=== PATIENT | male | born 1970 | race Caucasian/White ===

== ENCOUNTER 2021-04-29 15:35 | Emergency (ER) | payer BC ==
[~2021-04-29] VITALS: Ht 190.5 cm; Wt 136.4 kg
[2021-04-29] MEDS ORDERED: NORVASC 10MG10 MG PO (16:29)
[2021-04-29] MEDS ORDERED: HYZAAR 25 MG-101 TAB PO (16:29)
[2021-04-29] MEDS ORDERED: LIPITOR 40MG TA40 MG PO (16:29)
[2021-04-29] MEDS ORDERED: JARDIANCE10 PO (16:30)
[2021-04-29 17:07] LABS: HEMATOCRIT 44.1 % (42.0-52.0); HEMOGLOBIN 15.5 g/dl (13.5-18.0); MEAN CELL VOLUME 92 fl (80.0-100.0); MEAN CORPUSCULAR HEMOGLOBIN 32 pg (27.0-31.0); MEAN CORPUSCULAR HGB CONC 35 g/dl (33.0-37.0); MEAN PLATELET VOLUME 10.6 fl (7.4-10.4); PLATELET COUNT 284 K/mm3 (130-400); RED BLOOD COUNT 4.81 M/mm3 (4.20-5.60); REDCELL DISTRIBUTION WIDTH-CV 13.1 % (11.5-14.5)
[2021-04-29 17:17] LABS: ALBUMIN 4.4 gm/dL (3.5-5.0); BILIRUBIN,TOTAL 1.3 mg/dL (0.0-1.0); CALCIUM 9.4 mg/dL (8.4-10.2); CREATININE, serum 0.74 (0.66-1.25); POTASSIUM 3.1 mmol/L (3.4-5.0); TOTAL PROTEIN 8.4 gm/dL (6.4-8.2)
[2021-04-29 17:46] LABS: BAND 2 % (0-10); LYMPHOCYTE 13 % (20.0-51.0); NEUTROPHILS 76 % (42.0-75.2)
[2021-04-29 21:18] VITALS: BP 135/83; PULSE 68; TEMP 98.1
== END 2021-04-29 21:18 | disposition home or self-care (01) ==
LOC: COL.ER 15:35
PROVIDERS: Physician Assistant
DX: U07.1 COVID-19 (principal); I10 Essential (primary) hypertension; E11.9 Type 2 diabetes mellitus without complications; E78.5 Hyperlipidemia, unspecified; Z79.84 Long term (current) use of oral hypoglycemic drugs; Z73.0 Burn-out
CPT/HCPCS: Q0244

== ENCOUNTER 2024-05-09 08:04 | Inpatient (IN) | payer BC ==
[~2024-05-09] VITALS: Ht 190.5 cm; Wt 143.9 kg
[~2024-05-09 08:04] MED LIST: HYZAAR 25 MG-101 TAB PO; JARDIANCE25 PO; LIPITOR 40MG TA40 MG PO; NORVASC 10MG10 MG PO
[2024-05-09] MEDS ORDERED: NS 1,000 ML IV ONE (09:15)
[2024-05-09 09:42] LABS: BASO % 0.1 % (0.0-2.0); GRAN # 14.3 K/mm3 (1.4-6.5); GRAN % 88.8 % (42.2-75.2); HEMOGLOBIN 16.4 g/dl (13.5-18.0); LYMPH # 1.3 K/mm3 (1.2-3.4); MEAN CELL VOLUME 93 fl (80.0-100.0); MEAN CORPUSCULAR HEMOGLOBIN 32 pg (27-31); MEAN CORPUSCULAR HGB CONC 35 g/dl (33.0-37.0); MEAN PLATELET VOLUME 10.4 fl (7.4-10.4); MONO # 0.4 K/mm3 (0.1-0.6); MONO % 2.7 % (1.7-9.3); PLATELET COUNT 328 K/mm3 (130-400); RED BLOOD COUNT 5.06 M/mm3 (4.20-5.60); REDCELL DISTRIBUTION WIDTH-CV 12.8 % (11.5-14.5)
[2024-05-09 10:04] LABS: ALBUMIN 4.1 g/dL (3.5-5.0); BILIRUBIN,TOTAL 1.3 mg/dL (0.2-1.2); C-REACTIVE PROTEIN 0.48 mg/dL (0.00-0.50); CALCIUM 9.6 mg/dL (8.4-10.2); CREATININE, serum 0.82 mg/dL (0.72-1.25); POTASSIUM 3.3 mEq/L (3.5-4.5); TOTAL PROTEIN 8.1 g/dl (6.2-8.1)
[2024-05-09] MEDS ORDERED: Iohexol 300 - 100 ML VIAL IV ONE (10:15)
[2024-05-09] MEDS ORDERED: NS 100 ML IV SCH (10:16)
[2024-05-09] MEDS ORDERED: CIALIS10 MG PO (13:01)
[2024-05-09] MEDS ORDERED: LR 1,000 ML IV SCH ×2 (13:30→23:00)
[2024-05-09] MEDS ORDERED: Ondansetron 4 MG/2 ML VIAL IV PRN ×3 (13:30→23:00)
[2024-05-09] MEDS ORDERED: Docusate Sodium 100 MG CAP PO PRN (13:30)
[2024-05-09] MEDS ORDERED: Polyethylene Glycol 3350 17 GM PDS PO PRN (13:30)
[2024-05-09] MEDS ORDERED: *Potassium Replacement Protocol MC SCH (13:30)
[2024-05-09] MEDS ORDERED: Acetaminophen 325 MG TAB PO PRN (13:30)
[2024-05-09] MEDS ORDERED: Potassium Chloride 100 ML IV SCH ×2 (13:30→23:45)
[2024-05-09] MEDS ORDERED: Heparin 5,000 UNITS/ML 1 ML VIAL SQ SCH (16:00)
[2024-05-09 16:54] VITALS: BP 170/79; PULSE 69; TEMP 98.8
[2024-05-09] MEDS ORDERED: Morphine 4 MG/ML VIAL IV PRN (17:15)
[2024-05-09 17:23] VITALS: BP_SYST 170
--- NOTE | 2024-05-09 18:15 | NUR ---
PATIENT GOING DOWN TO OR. PACU AWARE OF NO ORDERS FOR A CONSENT. NPO. IV FLUIDS TO GRAVITY IN ROOM AND READY TO GO. TICKET TO RIDE ON CHART. PATIENT GOING DOWN VIA BED WITH PACU NURSE. FAMILY JUST ARRIVED AT BEDSIDE.
[2024-05-09] MEDS ORDERED: Scopolamine 1 MG Delivered 3-Day PATCH TD SCH (19:00)
[2024-05-09] MEDS ORDERED: Midazolam 2 MG/2 ML VIAL ONE (19:22)
[2024-05-09] MEDS ORDERED: Rocuronium 50 MG/5 ML Multi-Dose VIAL ONE ×2 (19:22→21:05)
[2024-05-09] MEDS ORDERED: fentaNYL 50 MCG/ML 2 ML VIAL ONE ×2 (19:22→22:23)
[2024-05-09] MEDS ORDERED: Succinylcholine PF 200 MG/10 ML SYRINGE IV ONE ×2 (19:23→19:42)
[2024-05-09] MEDS ORDERED: dexAMETHasone 10 MG/ML VIAL ONE (19:26)
[2024-05-09] MEDS ORDERED: Lidocaine PF 2% (20 MG/ML) 5 ML VIAL ONE (19:26)
[2024-05-09] MEDS ORDERED: NS 10 ML IV ONE (19:26)
[2024-05-09] MEDS ORDERED: Ketorolac 30 MG/ML VIAL ONE (19:26)
[2024-05-09] MEDS ORDERED: Glycopyrrolate 0.2 MG/ML 1 ML VIAL ONE (19:26)
[2024-05-09] MEDS ORDERED: NS 100 ML IV ONE (20:05)
[2024-05-09] MEDS ORDERED: Ondansetron 4 MG/2 ML VIAL ONE (21:32)
[2024-05-09] MEDS ORDERED: HYDROmorphone 1 MG/1 ML SYRINGE [PACU/SDC ONLY] IV PRN (22:00)
[2024-05-09] MEDS ORDERED: fentaNYL 50 MCG/ML 1 ML SYRINGE/VIAL [PACU/SDC ONLY] IV PRN (22:00)
[2024-05-09] MEDS ORDERED: hydrALAZINE 20 MG/ML 1 ML VIAL IV PRN (22:00)
[2024-05-09] MEDS ORDERED: Naloxone 0.4 MG/ML VIAL IV PRN (23:00)
[2024-05-09] MEDS ORDERED: oxyCODONE 5 MG TAB PO PRN (23:00)
[2024-05-09] MEDS ORDERED: HYDROmorphone 0.5 MG/0.5 ML SYRINGE IV PRN (23:00)
[2024-05-09 23:45] VITALS: BP 138/63; PULSE 65
[2024-05-09] MEDS ORDERED: Acetaminophen 500 MG TAB PO SCH (23:49)
[2024-05-10] VITALS (18 sets, daily range): BP systolic 106–137; BP diastolic 61–71; PULSE 53–71; TEMP 98–98.8
--- NOTE | 2024-05-10 | NUR ---
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
[2024-05-10 01:00] LABS: URINE APPEARANCE CLEAR (CLEAR/HAZY); URINE BLOOD NEGATIVE (NEGATIVE); URINE COLOR YELLOW (YELLOW); URINE GLUCOSE 3+ (NEGATIVE); URINE KETONE 2+ (NEGATIVE); URINE NITRATE NEGATIVE (NEGATIVE); URINE PROTEIN(semi-quant) 1+ (NEGATIVE); URINE UROBILINOGEN 0.2 E.U/dL (0.2-1.0)
[2024-05-10 01:12] LABS: COLLECTION METHOD CLEAN CATCH
--- NOTE | 2024-05-10 03:22 | NUR ---
Called Giuseppe,the PA and made him aware that patient is still on NPO, received an order for low dose insulin sliding scale.
[2024-05-10] MEDS ORDERED: Insulin Lispro (HumaLOG) SQ SCH (06:00)
[2024-05-10 06:35] LABS: BASO % 0.2 % (0.0-2.0); HEMATOCRIT 40.5 % (42.0-52.0); LYMPH % 4.8 % (20.0-51.0); MEAN CELL VOLUME 93 fl (80.0-100.0); MEAN CORPUSCULAR HGB CONC 35 g/dl (33.0-37.0); MEAN PLATELET VOLUME 10.7 fl (7.4-10.4); MONO # 1.2 K/mm3 (0.1-0.6); MONO % 5.5 % (1.7-9.3); PLATELET COUNT 295 K/mm3 (130-400); RED BLOOD COUNT 4.37 M/mm3 (4.20-5.60); REDCELL DISTRIBUTION WIDTH-CV 12.9 % (11.5-14.5)
[2024-05-10 06:37] LABS: HEMOGLOBIN 14.2 g/dl (13.5-18.0); MEAN CORPUSCULAR HEMOGLOBIN 32 pg (27-31)
[2024-05-10 06:56] LABS: ALBUMIN 3.7 g/dL (3.5-5.0); BILIRUBIN,TOTAL 0.9 mg/dL (0.2-1.2); CALCIUM 8.6 mg/dL (8.4-10.2); CREATININE, serum 0.82 mg/dL (0.72-1.25); MAGNESIUM 2.4 mg/dL (1.6-2.6); PHOSPHOROUS 4.1 mg/dL (2.3-4.7); POTASSIUM 3.7 mEq/L (3.5-4.5); TOTAL PROTEIN 6.8 g/dl (6.2-8.1)
--- NOTE | 2024-05-10 07:02 | NUR ---
CRITICAL LAB WBC 21.[address] HOLMAN.
[2024-05-10] MEDS ORDERED: Glucagon 1 MG VIAL IM PRN (07:30)
[2024-05-10] MEDS ORDERED: Dextrose 50% Water 25 GM/50 ML SYRINGE IV PRN (07:30)
[2024-05-10] MEDS ORDERED: Dextrose (Glucose) 15 GM (4 x 3.75 GM) Chewable TABLET PACK PO PRN (07:30)
--- NOTE | 2024-05-10 08:00 | NUR ---
PATIENT IS A&O. VSS. 02 @ 2L PER NC WITH SATS IN MID 90'S. C/O PAIN RATED AT 6/10. GAVE PRN IV DILAUDID WITH AM MEDS. IV FLUIDS INFUSING VIA PUMP INTO RIGHT FORARM IV, IV ABX INFUSING INTO LEFT AC IV. DIET ADVANCED TO CLEARS AND LIQUIDS AT BEDSIDE. AM BS WAS 143, NO SSI REQUIRED. ABD IS DISTENDED, FIRM, AND WITH HYPO ACTIVE BOWL SOUNDS. ABD MIDLINE DSG IS CD&I. COLOSTOMY WITH BAG & WAFFER INTACT. HEAD TO TOE ASSESSMENT COMPLETE. CHEMICAL TESTER NURSE REPORTED CRITICAL WBC OF 21.3. HOSPITALIST TEAM TO ROUND SOON. PATIENT RESTING UP IN BED WITH NO OTHER NEEDS. CALL LIGHT IN REACH.
[2024-05-10] MEDS ORDERED: Celecoxib 200 MG CAP PO SCH (09:00)
--- NOTE | 2024-05-10 11:41 | NUR ---
D: Patient Registrar stopped by room on rounds. A: Pt was resting and content. No needs right now. P: Patient Registrar informed pt that if he needed anything from the counter tender area to let his nurse know. Patient Registrar will follow up as needed.
--- NOTE | 2024-05-10 16:53 | NUR ---
fat pressroom worker met with patient to discuss discharge planning. Patient lives in [place] with his , Marylou, P# [phone]. PCP is Dr. Darling, [facility]acy [facility] No issues affording medications. No DPOA-HC, DME is a CPAP. Patient reports to be independent with [facility] and has a form of transportation to and from appointments. Insurance is [employer]. Patient would like to return home at time of discharge. Discharge plan: Home
[2024-05-10] MEDS ORDERED: Potassium Bicarbonate/Citrate 20 MEQ Effervescent TAB PO SCH (20:00)
[2024-05-11] VITALS (12 sets, daily range): BP systolic 107–135; BP diastolic 65–82; PULSE 59–65; TEMP 97.6–98.9
[2024-05-11 06:10] LABS: BASO # 0.1 K/mm3 (0.0-0.2); BASO % 0.5 % (0.0-2.0); EOS # 0.1 K/mm3 (0.0-0.7); EOS % 0.8 % (0.0-4.0); GRAN % 68.6 % (42.2-75.2); HEMATOCRIT 37.1 % (42.0-52.0); HEMOGLOBIN 12.6 g/dl (13.5-18.0); LYMPH # 2.2 K/mm3 (1.2-3.4); LYMPH % 21.8 % (20.0-51.0); MEAN CELL VOLUME 96 fl (80.0-100.0); MEAN CORPUSCULAR HEMOGLOBIN 33 pg (27-31); MEAN CORPUSCULAR HGB CONC 34 g/dl (33.0-37.0); MEAN PLATELET VOLUME 10.8 fl (7.4-10.4); MONO # 0.8 K/mm3 (0.1-0.6); MONO % 7.9 % (1.7-9.3); PLATELET COUNT 233 K/mm3 (130-400); RED BLOOD COUNT 3.88 M/mm3 (4.20-5.60); REDCELL DISTRIBUTION WIDTH-CV 13.5 % (11.5-14.5)
[2024-05-11 06:27] LABS: BILIRUBIN,TOTAL 0.9 mg/dL (0.2-1.2); CALCIUM 8.3 mg/dL (8.4-10.2); CREATININE, serum 0.68 mg/dL (0.72-1.25); POTASSIUM 3.5 mEq/L (3.5-4.5); TOTAL PROTEIN 5.8 g/dl (6.2-8.1)
[2024-05-11] MEDS ORDERED: Potassium Bicarbonate/Citrate 20 MEQ Effervescent TAB PO SCH (08:00)
--- NOTE | 2024-05-11 08:00 | NUR ---
Pt. sitting up in bed. Pt. is A&OX3, assessment complete. Colostomy noted with liquid brown stool noted and passing gas through stoma. Stoma WNL. Pt. reports pain at a 9 on pain scale, will give meds per orders. Pt. denies further needs, call light within reach.
[2024-05-11] MEDS ORDERED: Insulin Lispro (HumaLOG) SQ SCH (21:00)
[2024-05-12] VITALS (12 sets, daily range): BP systolic 108–147; BP diastolic 68–85; PULSE 54–70; TEMP 97.5–98.9
[2024-05-12 06:13] LABS: BASO # 0.1 K/mm3 (0.0-0.2); BASO % 0.6 % (0.0-2.0); EOS # 0.2 K/mm3 (0.0-0.7); EOS % 2.2 % (0.0-4.0); GRAN # 5.6 K/mm3 (1.4-6.5); GRAN % 65.6 % (42.2-75.2); HEMATOCRIT 37.4 % (42.0-52.0); HEMOGLOBIN 12.9 g/dl (13.5-18.0); LYMPH % 23.2 % (20.0-51.0); MEAN CELL VOLUME 95 fl (80.0-100.0); MEAN CORPUSCULAR HEMOGLOBIN 33 pg (27-31); MEAN CORPUSCULAR HGB CONC 35 g/dl (33.0-37.0); MEAN PLATELET VOLUME 10.3 fl (7.4-10.4); MONO # 0.7 K/mm3 (0.1-0.6); MONO % 7.8 % (1.7-9.3); PLATELET COUNT 226 K/mm3 (130-400); RED BLOOD COUNT 3.94 M/mm3 (4.20-5.60); REDCELL DISTRIBUTION WIDTH-CV 13.1 % (11.5-14.5)
[2024-05-12 06:40] LABS: BILIRUBIN,TOTAL 0.8 mg/dL (0.2-1.2); CALCIUM 8.4 mg/dL (8.4-10.2); CREATININE, serum 0.71 mg/dL (0.72-1.25); TOTAL PROTEIN 6.3 g/dl (6.2-8.1)
--- NOTE | 2024-05-12 08:17 | NUR ---
Pt. sitting up in bed. Pt. is A&OX3, assessment complete. INT to lt. ac and rt. wrist patent. Pt. reports not sleeping well last noc. Pt. reports pain at a 9 on pain scale, giving pain meds per orders. Midline incision CDI. Colostomy intact. Pt. denies further needs, call light within reach.
[2024-05-13] VITALS (11 sets, daily range): BP systolic 114–150; BP diastolic 73–81; PULSE 50–63; TEMP 97.4–98.6
[2024-05-13 06:40] LABS: BASO # 0.1 K/mm3 (0.0-0.2); BASO % 0.6 % (0.0-2.0); EOS # 0.3 K/mm3 (0.0-0.7); EOS % 3.6 % (0.0-4.0); GRAN # 5.4 K/mm3 (1.4-6.5); GRAN % 65.6 % (42.2-75.2); HEMOGLOBIN 12.5 g/dl (13.5-18.0); LYMPH # 1.8 K/mm3 (1.2-3.4); LYMPH % 21.7 % (20.0-51.0); MEAN CELL VOLUME 94 fl (80.0-100.0); MEAN CORPUSCULAR HEMOGLOBIN 32 pg (27-31); MEAN CORPUSCULAR HGB CONC 34 g/dl (33.0-37.0); MEAN PLATELET VOLUME 10.6 fl (7.4-10.4); MONO # 0.7 K/mm3 (0.1-0.6); MONO % 7.9 % (1.7-9.3); PLATELET COUNT 248 K/mm3 (130-400); RED BLOOD COUNT 3.92 M/mm3 (4.20-5.60); REDCELL DISTRIBUTION WIDTH-CV 13.1 % (11.5-14.5)
[2024-05-13 06:52] LABS: HEMATOCRIT 36.9 % (42.0-52.0)
[2024-05-13 07:24] LABS: ALBUMIN 2.8 g/dL (3.5-5.0); BILIRUBIN,TOTAL 0.8 mg/dL (0.2-1.2); CALCIUM 8.3 mg/dL (8.4-10.2); CREATININE, serum 0.67 mg/dL (0.72-1.25); POTASSIUM 3.9 mEq/L (3.5-4.5); TOTAL PROTEIN 6.1 g/dl (6.2-8.1)
[2024-05-13] MEDS ORDERED: Potassium Bicarbonate/Citrate 20 MEQ Effervescent TAB PO ONE (08:15)
--- NOTE | 2024-05-13 09:17 | NUR ---
Patient resting in bed. Alert. Tolerating breakfast, taking it slow. Encouraged Protien intake, krys ensure ordered per his request. We discussed needing to go over ostomy cares today, awaiting his to arrive this afternoon and we will change ostomy appliance. We did reviewed how to empty appliance, patient verbalized understanding, Will encourage him to empty independently today. Midline with clean gauze dressing. Ochoa rohit [place], will discuss with physician when to remove today. Patient rating pain 5/10, but denies wanting narcotic medications. Will monitor
--- NOTE | 2024-05-13 12:01 | NUR ---
Patient resting in bed. Offered to walk with patient, not interested at this time. Ostomy appliance emptied,Encouraged patient to do himself with instructions, but wanting to wait until his is at bedside to do it. Iv antibioitcs as ordered. Will monitor
--- NOTE | 2024-05-13 19:28 | NUR ---
Patient showered this afternoon, he did well. [place] much better after. Ostomy education given to patient and his family. Very receptive, asking appropriate questions. We reviewed measuring card, cut to fit bag. Stoma powder and skin prep wipes used. Other products avaliable to patient reviewed with patient. Gabriela BOWERS per orders. Patient in good spirits. Laughing with family at his side. [facility]
--- NOTE | 2024-05-13 21:00 | NUR ---
PT A&O X4 LAYING IN BED. VSS. PT HAS BEEN UP AMBULATING HALLS. DENYING PAIN OTHER THAN SOME MINOR GAS PAINS, DENIES THE NEED FOR PAIN MEDS AT THIS TIME. DENYING N/V. MIDLINE INCISION WITH WALE INTACT AND COLOSTOMY TO LEFT SIDE ABD WITH LOOSE BROWN OUTPUT. PT VOIDING USING URINAL AFTER LAW REMOVED TODAY. DENYING FURTHER NEEDS. CALL LIGHT IN REACH
[2024-05-14] VITALS (9 sets, daily range): BP systolic 114–150; BP diastolic 75–77; PULSE 54–62; TEMP 96.7–99
--- NOTE | 2024-05-14 06:11 | NUR ---
PT RESTING IN BED WITH UNLABORED RESP & CPAP ON. NO C/O PAIN THROUGHOUT THE NIGHT. CALL LIGHT IN REACH
[2024-05-14 07:01] LABS: BASO # 0.1 K/mm3 (0.0-0.2); BASO % 0.7 % (0.0-2.0); EOS # 0.2 K/mm3 (0.0-0.7); EOS % 3.2 % (0.0-4.0); GRAN # 4.5 K/mm3 (1.4-6.5); GRAN % 64.6 % (42.2-75.2); HEMOGLOBIN 12.6 g/dl (13.5-18.0); LYMPH # 1.6 K/mm3 (1.2-3.4); LYMPH % 23.3 % (20.0-51.0); MEAN CELL VOLUME 95 fl (80.0-100.0); MEAN CORPUSCULAR HEMOGLOBIN 33 pg (27-31); MEAN CORPUSCULAR HGB CONC 34 g/dl (33.0-37.0); MEAN PLATELET VOLUME 10.5 fl (7.4-10.4); MONO # 0.5 K/mm3 (0.1-0.6); MONO % 7.5 % (1.7-9.3); PLATELET COUNT 252 K/mm3 (130-400); RED BLOOD COUNT 3.84 M/mm3 (4.20-5.60)
[2024-05-14 07:07] LABS: HEMATOCRIT 36.6 % (42.0-52.0)
[2024-05-14 07:08] LABS: CREATININE, serum 0.76 mg/dL (0.72-1.25); POTASSIUM 3.9 mEq/L (3.5-4.5)
[2024-05-14] MEDS ORDERED: Potassium Bicarbonate/Citrate 20 MEQ Effervescent TAB PO ONE (09:00)
[2024-05-14] MEDS ORDERED: AMOXICILLIN 8751 TAB PO (09:02)
--- NOTE | 2024-05-14 10:15 | NUR ---
poultry farm worker attended interdisciplinary clinical rounding with Dr. Brown. Patient is medically ready for discharge today.
--- NOTE | 2024-05-14 11:18 | NUR ---
Pt. sitting up in bed. Pt. is A&OX3, assessment complete. INT to rt. wrist an lt. ac patent. Pt. dneies pain at this time. Abd. incision well approximated. Pt. denies further needs, call light within reach.
--- NOTE | 2024-05-14 17:14 | NUR ---
Pt. with discharge orders. Bilateral INT's discontinued. Reviewed and gave discharge packet to the pt. Pt. and voice understanding. Ostomy care reviewed with the pt. and . Pt. voices understanding. Pt. getting dressed. Will call when ready for wheelchair escort.
--- NOTE | 2024-05-14 18:00 | NUR ---
Pt. escorted out by this nurse
== END 2024-05-14 18:00 | disposition home or self-care (01) | DRG 231 ==
LOC: COL.ER 08:04 → SURG 11:02
PROVIDERS: Emergency Medicine; Physician Assistant; Surgery; ADMIT Hospitalist
PROC: 0DTN0ZZ Resection of Sigmoid Colon, Open Approach (ICD-10-PCS; 2024-05-09)
PROC: 0D1N0Z4 Bypass Sigmoid Colon to Cutaneous, Open Approach (ICD-10-PCS; 2024-05-09)
PROC: 5A09357 Assistance with Respiratory Ventilation, Less than 24 Consecutive Hours, Continuous Positive Airway Pressure (ICD-10-PCS; principal; 2024-05-09 18:50)
DX: K56.609 Unspecified intestinal obstruction, unspecified as to partial versus complete obstruction (principal); K57.32 Diverticulitis of large intestine without perforation or abscess without bleeding; E87.20 Acidosis, unspecified; N30.80 Other cystitis without hematuria; I10 Essential (primary) hypertension; E87.6 Hypokalemia; G47.33 Obstructive sleep apnea (adult) (pediatric); E11.9 Type 2 diabetes mellitus without complications; D72.829 Elevated white blood cell count, unspecified; E78.5 Hyperlipidemia, unspecified; E66.9 Obesity, unspecified; Z99.81 Dependence on supplemental oxygen; Z87.891 Personal history of nicotine dependence
CPT/HCPCS: A4314; A9284; J0690; J1100; J1170; J1644; J1650; J1885; J2250; J2270; J2405; J2543; J2704; J3010; J3480; J7030; J7120; Q9967